=== PATIENT | female | born 1935 | race Caucasian/White ===

== ENCOUNTER → 2017-02-09 | Outpatient (CLI) | payer MEDICARE, OTHER | END | disposition home or self-care (01) | LOC: PCVCCLINIC 12:36 | PROVIDERS: ATTEND Internal Medicine | DX: I25.10 Atherosclerotic heart disease of native coronary artery without angina pectoris (principal); I42.9 Cardiomyopathy, unspecified; J44.9 Chronic obstructive pulmonary disease, unspecified; E78.5 Hyperlipidemia, unspecified; Z95.0 Presence of cardiac pacemaker; I50.9 Heart failure, unspecified; Z87.891 Personal history of nicotine dependence; Z88.0 Allergy status to penicillin; Z88.2 Allergy status to sulfonamides | CPT/HCPCS: 80061; 93005; G0463 ==

== ENCOUNTER → 2017-09-14 | Outpatient (CLI) | payer MEDICARE, OTHER | END | disposition home or self-care (01) | LOC: PCVCCLINIC 10:13 | DX: I42.7 Cardiomyopathy due to drug and external agent (principal); I25.10 Atherosclerotic heart disease of native coronary artery without angina pectoris; J84.10 Pulmonary fibrosis, unspecified; E78.5 Hyperlipidemia, unspecified; T45.1X5A Adverse effect of antineoplastic and immunosuppressive drugs, initial encounter; Z87.891 Personal history of nicotine dependence; Z88.0 Allergy status to penicillin; Z79.899 Other long term (current) drug therapy | CPT/HCPCS: 80061; 93005; 93280; G0463 ==

== ENCOUNTER → 2018-03-22 | Outpatient (CLI) | payer MEDICARE, OTHER ==
--- NOTE | 2018-03-22 10:07 | PCVCIMAG ---
APPROVED REPORT Study performed: 03/22/2018 09:20:44 EXAM: Comprehensive 2D, Doppler, and color-flow Echocardiogram Patient Location: Echo lab Status: routine BSA: 1.63 HR: 87 bpmBP: 106/58 mmHg Rhythm: Pacemaker Other Information Study Quality: Adequate Indications Pacemaker Cardiomyopathy 2D Dimensions IVSd: 13.34 (7-11mm)LVOT Diam: 21.81 (18-24mm) LVDd: 51.97 mm PWd: 11.86 (7-11mm) LVDs: 41.76 (25-40mm) Left Atrium: 42.17 (27-40mm) Aortic Root: 31.31 mm LV Single Plane 4CH: 40.73 % LV Single Plane 2CH: 39.14 % Biplane EF: 39.1 % Volumes Left Atrial Volume (Systole) Single Plane 4CH: 73.65 mLSingle Plane 2CH: 55.88 mL LA ESV Index: 41.00 mL/m2 Aortic Valve AoV Peak Gene.: 1.69 m/s AO Peak Gr.: 11.45 mmHgLVOT Max P.89 mmHg LVOT Max V: 1.11 m/s JACLYN Vmax: 2.44 cm2 Pulmonary Valve PV Peak Gene.: 0.83 m/sPV Peak Gr.: 2.73 mmHg Tricuspid Valve TR Peak Gene.: 2.49 m/s TR Peak Gr.: 24.94 mmHg TV Vmax: 0.56 m/s Left Ventricle The left ventricle is normal size. There is normal LV segmental wall motion. There is normal left ventricular wall thickness. Left ventricular systolic function is mild-moderately decreased globally. Discordant septal motion probably from RV pacing. LVEF is 40-45%. This study is not technically sufficient to allow evaluation of the LV diastolic function due to pacing. Right Ventricle The right ventricle is normal size. Pacing wires in the right heart. The right ventricular systolic function is normal. Atria The left atrium size is normal. The right atrium size is normal. Aortic Valve The aortic valve is sclerotic. Trace aortic regurgitation. There is no aortic valvular stenosis. Mitral Valve Mild mitral annular calcification Trace mitral regurgitation. No evidence of mitral valve stenosis. Tricuspid Valve The tricuspid valve is normal in structure. Mild tricuspid regurgitation with PAP of 35 mmHg. Pulmonic Valve The pulmonary valve is normal in structure. There is no pulmonic valvular regurgitation. Great Vessels The aortic root is normal in size. IVC is normal in size and collapses >50% with inspiration. Pericardium There is no pericardial effusion. There is no pleural effusion. <Conclusion> Left ventricular systolic function is mild-moderately decreased globally. Discordant septal motion probably from RV pacing. LVEF is 40-45%. Pacing wires in right heart The aortic valve is sclerotic. Trace aortic regurgitation, no stenosis. Mild mitral annular calcification. Trace mitral regurgitation. Mild tricuspid regurgitation with pulmonary artery pressure of 35 mmHg. There is no pericardial effusion.
== END | disposition home or self-care (01) ==
LOC: PCVCIMAG 09:34
PROVIDERS: ATTEND Internal Medicine
DX: I07.1 Rheumatic tricuspid insufficiency (principal); I25.10 Atherosclerotic heart disease of native coronary artery without angina pectoris; I42.7 Cardiomyopathy due to drug and external agent; J84.10 Pulmonary fibrosis, unspecified; E78.5 Hyperlipidemia, unspecified; T45.1X5A Adverse effect of antineoplastic and immunosuppressive drugs, initial encounter; Z95.0 Presence of cardiac pacemaker; Z87.891 Personal history of nicotine dependence; Z79.82 Long term (current) use of aspirin
CPT/HCPCS: 80061; 93005; 93306; G0463